=== PATIENT | male | born 1965 | race African-American/Black ===

== ENCOUNTER 2019-05-05 19:09 | Emergency (ER) | payer SELFPAY ==
[2019-05-05 19:29] VITALS: BP 136/54; PULSE 89; TEMP 98.8; BMI 41.4
[2019-05-05] MEDS ORDERED: KETOROLAC TROMETHAMINE 60 MG/2 ML VIAL IM ONE (20:10)
[2019-05-05] MEDS ORDERED: KETOROLAC TROMETHAMINE 60 MG/2 ML VIAL ONE (20:11)
--- NOTE | 2019-05-05 20:26 | PDOC ---
History of Present Illness - General Chief Complaint: Back Pain Stated Complaint: BACK PAIN Time Seen by Provider: 05/05/19 19:13 - History of Present Illness Initial Comments: 05/05/19 20:23 54-year-old male presents for lower back pain which started slowly over the last 3 hours with posterior lateral left leg radicular symptoms. No loss of bowel or bladder function saddle paresthesias or numbness or incontinence no systemic symptoms. Past History - Past Medical History COPD: No - Psycho Social/Smoking Cessation Hx Smoking History: Never smoked Have you smoked in the past 12 months: No Information on smoking cessation initiated: No Hx Alcohol Use: No Drug/Substance Use Hx: No Review of Systems - Review of Systems Musculoskeletal: Yes: Back Pain *Physical Exam - Vital Signs Last Vital Signs Temp Pulse Resp BP Pulse Ox 98.8 F 89 18 136/54 L 100 05/05/19 19:23 05/05/19 19:23 05/05/19 19:23 05/05/19 19:23 05/05/19 19:23 - Physical Exam 05/05/19 20:23 My adult exam Lumbar spine skin color temperature normal. No midline tenderness mild bilateral paralumbar musculature spasm and tenderness. 5 out of 5 strength bilateral lower extremities without gross sensorimotor deficits positive straight leg raise test on the left negative on the right neurovascular intact thighs and calves are soft and nontender. Medical Decision Making - Medical Decision Making 05/05/19 20:24 Patient pain relieved with Toradol will send in Motrin and Flexeril follow-up with spine surgery Discharge - Discharge Information Problems reviewed: Yes Clinical Impression/Diagnosis: Lumbar radiculopathy Condition: Improved Disposition: HOME - Admission No - Follow up/Referral Referrals: Jorge Luis Jefferson MD, [facility] [Staff Physician] - - Patient Discharge Instructions Patient Printed Discharge Instructions: Lumbar Radiculopathy, DI for Lumbar Radiculopathy Additional Instructions: Please take the medication as directed. Return to the emergency room for worsening symptoms and without fail follow-up with neurosurgery in 2 to 3 days for further evaluation and treatment options. Do not start the Motrin until tomorrow evening at this time. You were given an injection of a long-acting anti-inflammatory which should carry you through most of the day tomorrow. - Post Discharge Activity
[2019-05-05] MEDS ORDERED: CYCLOBENZAPRINE HCL 10 MG TABLET (FP) PO ONE (20:33)
[2019-05-05] MEDS ORDERED: CYCLOBENZAPRINE HCL 10 MG TABLET (FP) ONE (20:34)
--- NOTE | 2019-05-11 09:48 | EKG ---
Test Reason : Blood Pressure : / mmHG Vent. Rate : 086 BPM Atrial Rate : 086 BPM P-R Int : 178 ms QRS Dur : 082 ms QT Int : 372 ms P-R-T Axes : 077 072 066 degrees QTc Int : 445 ms NORMAL SINUS RHYTHM NONSPECIFIC ST ABNORMALITY ABNORMAL ECG NO PREVIOUS ECGS AVAILABLE Confirmed by MD Carlos, Salty ([id number]) on 05/11/2019 9:48:20 AM Referred By: Confirmed By:Salty Gonzalez MD
== END 2019-05-05 20:37 | disposition home or self-care (01) ==
LOC: JERFT 19:09
PROC: 3E0233Z Introduction of Anti-inflammatory into Muscle, Percutaneous Approach (ICD-10-PCS; principal; 2019-05-05)
DX: M54.16 Radiculopathy, lumbar region (principal)
CPT/HCPCS: 93005; 93010; 99282-25

== ENCOUNTER 2021-11-22 13:45 | Emergency (ER) | payer SELFPAY ==
[2021-11-22 13:53] VITALS: TEMP 98.5; BMI 35.9
[2021-11-22] MEDS ORDERED: SODIUM CHLORIDE 1,000 ML IV STA (14:02)
[2021-11-22 14:15] LABS: HEMOGLOBIN 14.4 G/dL (11.7-16.9); MCH 30.9 pg (25.7-33.7); MCHC 34.3 g/dl (32.0-35.9); MEAN CELL VOLUME 90.1 fl (80-96); MEAN PLT VOLUME 7.8 fl (7.5-11.1); PLATELET COUNT 359.5 10^3/uL (134-434); RBC 4.66 10^6/uL (4.00-5.60); RDW 13.8 % (11.9-15.9); WHITE BLOOD COUNT 10.6 10^3/uL (4.0-10.8)
[2021-11-22 14:21] LABS: INR 1.18 (0.83-1.09); PROTHROMBIN TIME (PATIENT) 13.6 SEC (9.7-13.0)
[2021-11-22 14:23] LABS: ACTIVATED PTT 29.7 SECONDS (25.2-36.5)
[2021-11-22 14:28] LABS: ALBUMIN 3.3 g/dl (3.4-5.0); BILIRUBIN,TOTAL 0.8 mg/dl (0.2-1); CALCIUM 9.4 mg/dl (8.5-10); CREATININE 1.3 mg/dl (0.55-1.3); TOT PROT 7.5 g/dl (6.4-8.2)
[2021-11-22] MEDS ORDERED: ACETAMINOPHEN 1000 MG/100 ML BAG IVPB ONE (14:35)
[2021-11-22] MEDS ORDERED: ACETAMINOPHEN INJECTION 100 ML IVPB ONE (14:38)
[2021-11-22 14:44] VITALS: PULSE 101
[2021-11-22 17:29] LABS: N-TERMINAL BNP 39.6 pg/ml (5-125)
[2021-11-22] MEDS ORDERED: morphine CARPU-JECT 4 MG/1 ML DISP.SYRIN IVPUSH ONE (19:45)
[2021-11-22] MEDS ORDERED: morphine SULFATE 4 MG/ML VIAL ONE (19:46)
[2021-11-22 20:55] VITALS: BP 123/64
[2021-11-22] MEDS ORDERED: IBUPROFEN 400 MG TABLET (FP) PO ONE ×2 (21:28→21:29)
== END 2021-11-22 21:34 | disposition left against medical advice (07) ==
LOC: FER 13:45
PROC: 3E0333Z Introduction of Anti-inflammatory into Peripheral Vein, Percutaneous Approach (ICD-10-PCS; principal; 2021-11-22)
PROC: 3E033NZ Introduction of Analgesics, Hypnotics, Sedatives into Peripheral Vein, Percutaneous Approach (ICD-10-PCS; 2021-11-22)
PROC: 3E0337Z Introduction of Electrolytic and Water Balance Substance into Peripheral Vein, Percutaneous Approach (ICD-10-PCS; 2021-11-22)
DX: R07.81 Pleurodynia (principal); R79.1 Abnormal coagulation profile
CPT/HCPCS: 36415; 71045-TC-FY; 80053; 83880; 84484; 85027; 85379; 85610; 85730; 93005; 99285-25; C9803-CS; U0003; U0005

== ENCOUNTER 2021-11-27 15:32 | Inpatient (IN) | payer SELFPAY ==
[2021-11-27 19:07] LABS: VENOUS BASE EXCESS 0.6 mmol/L (-2-2); VENOUS O2 SATURATION 82.7 % (70-80); VENOUS PCO2 38.5 mmHg (38-52); VENOUS PH 7.426 (7.310-7.410)
[2021-11-27 19:10] LABS: BASO % 0.2 % (0-2.0); EOS % 0.2 % (0-4.5); HEMATOCRIT 40.5 % (35.4-49); HEMOGLOBIN 13.3 GM/dL (11.7-16.9); LYMPH % 8.1 % (8-40); MCH 29.5 pg (25.7-33.7); MCHC 32.9 g/dl (32.0-35.9); MEAN CELL VOLUME 89.7 fl (80-96); MEAN PLT VOLUME 8.2 fl (7.5-11.1); MONO % 8.8 % (3.8-10.2); NEUT % 82.7 % (42.8-82.8); PLATELET COUNT 430 10^3/uL (134-434); RBC 4.51 M/mm3 (4.00-5.60); RDW 13.2 % (11.9-15.9); WHITE BLOOD COUNT 19.2 K/mm3 (4.0-10.0)
[2021-11-27 19:19] LABS: INR 1.47 (0.83-1.09)
[2021-11-27 19:21] LABS: ACTIVATED PTT 29.3 SECONDS (25.2-36.5)
[2021-11-27] MEDS ORDERED: morphine CARPU-JECT 4 MG/1 ML DISP.SYRIN IVPUSH ONE (19:25)
[2021-11-27 19:26] LABS: BLOOD UREA NITROGEN 19.1 mg/dL (7-18); CALCIUM 8.8 mg/dL (8.5-10.1)
[2021-11-27 19:34] LABS: ALBUMIN 2.5 g/dl (3.4-5.0)
[2021-11-27] MEDS ORDERED: ONDANSETRON 4 MG/2 ML VIAL IVPUSH ONE (19:34)
[2021-11-27] MEDS ORDERED: morphine SULFATE 4 MG/ML VIAL ONE (19:34)
[2021-11-27] MEDS ORDERED: ONDANSETRON 4 MG/2 ML VIAL ONE (19:35)
[2021-11-28] MEDS ORDERED: AZITHROMYCIN 250 MG TABLET PO ONE (01:09)
[2021-11-28] MEDS ORDERED: CEFTRIAXONE 1 GM/50 ML BAG ONE ×2 (01:37→09:30)
[2021-11-28] MEDS ORDERED: AZITHROMYCIN 250 MG TABLET ONE (01:37)
[2021-11-28] MEDS: CEFTRIAXONE 1 GM in DEXTROSE 5%-WATER - 50 ML IVPB SCH ×2 (01:48→10:26)
[2021-11-28 02:02] LABS: EPI CELLS 7 /uL (0-25.1); HYALINE CASTS 2 /uL (0-3.1); PH,URINE 5.5 (5.0-8.0); URINE APPEARANCE CLEAR; URINE BACTERIA 5 /uL (0-1359); URINE BILIRUBIN NEGATIVE (NEGATIVE); URINE COLOR YELLOW; URINE GLUCOSE (UA) NEGATIVE (NEGATIVE); URINE KETONE 1+ (NEGATIVE); URINE LEUK ESTERASE NEGATIVE (NEGATIVE); URINE NITRITE NEGATIVE (NEGATIVE); URINE PROTEIN 1+ (NEGATIVE); URINE RBC 62 /uL (0-23.9); URINE UROBILINOGEN 0.2 mg/dL (0.2-1.0); URINE WBC 18 /uL (0-25.8)
[2021-11-28 07:42] LABS: BASO % 0.4 % (0-2.0); EOS % 0.4 % (0-4.5); HEMATOCRIT 39.4 % (35.4-49); LYMPH % 9.9 % (8-40); MCH 29.9 pg (25.7-33.7); MCHC 33.1 g/dl (32.0-35.9); MEAN CELL VOLUME 90.3 fl (80-96); MEAN PLT VOLUME 8.6 fl (7.5-11.1); MONO % 11.2 % (3.8-10.2); NEUT % 78.1 % (42.8-82.8); PLATELET COUNT 391 10^3/uL (134-434); RBC 4.36 M/mm3 (4.00-5.60); WHITE BLOOD COUNT 18.9 K/mm3 (4.0-10.0)
[2021-11-28 08:10] LABS: CALCIUM 8.6 mg/dL (8.5-10.1)
[2021-11-28 08:11] LABS: ALBUMIN 2.3 g/dl (3.4-5.0); BLOOD UREA NITROGEN 18.5 mg/dL (7-18); MAGNESIUM 2.3 mg/dL (1.8-2.4)
[2021-11-28 08:14] LABS: PHOSPHOROUS 4.2 mg/dL (2.5-4.9)
[2021-11-28 08:16] LABS: BILIRUBIN,TOTAL 1.3 mg/dL (0.2-1); TOT PROT 7.5 g/dl (6.4-8.2)
[2021-11-28 08:26] LABS: INR 1.42 (0.83-1.09); PROTHROMBIN TIME (PATIENT) 16.4 SEC (9.7-13.0)
[2021-11-28] MEDS ORDERED: ENOXAPARIN NA (PORCINE) 40 MG/0.4 ML DISP.SYRIN SQ ONE (09:30)
[2021-11-28] MEDS: ENOXAPARIN NA (PORCINE) 40 MG/0.4 ML DISP.SYRIN SQ SCH (10:26)
[2021-11-28] MEDS: SODIUM CHLORIDE 1,000 ML IV SCH (12:00)
[2021-11-28] MEDS ORDERED: ACETAMINOPHEN 500 MG TABLET (FP) PO PRN (17:34)
[2021-11-28] MEDS ORDERED: PIPERACILLIN/TAZOBACTAM 3.375 GM VIAL IVPB ONE (17:51)
[2021-11-28] MEDS ORDERED: DEXTROSE 5%-WATER - 50 ML IVPB ONE (17:51)
[2021-11-28] MEDS: PIPERACILLIN/TAZOB 3.375 GM 3.375 GM in DEXTROSE 5%-WATER - 50 ML IVPB SCH (18:46)
[2021-11-28 20:05] VITALS: BMI 40.6
[2021-11-29] MEDS ORDERED: DEXTROSE 5%-WATER - 50 ML IVPB ONE ×3 (02:13→18:10)
[2021-11-29] MEDS ORDERED: PIPERACILLIN/TAZOBACTAM 3.375 GM VIAL IVPB ONE ×3 (02:13→18:10)
[2021-11-29] MEDS: PIPERACILLIN/TAZOB 3.375 GM 3.375 GM in DEXTROSE 5%-WATER - 50 ML IVPB SCH ×3 (02:55→18:25)
[2021-11-29 07:30] LABS: BASO % 0.5 % (0-2.0); EOS % 0.5 % (0-4.5); HEMATOCRIT 37.6 % (35.4-49); HEMOGLOBIN 12.4 GM/dL (11.7-16.9); LYMPH % 10.3 % (8-40); MCH 29.7 pg (25.7-33.7); MEAN CELL VOLUME 89.8 fl (80-96); MEAN PLT VOLUME 8.4 fl (7.5-11.1); MONO % 10.6 % (3.8-10.2); NEUT % 78.1 % (42.8-82.8); PLATELET COUNT 359 10^3/uL (134-434); RBC 4.18 M/mm3 (4.00-5.60); RDW 13.3 % (11.9-15.9); WHITE BLOOD COUNT 16.7 K/mm3 (4.0-10.0)
[2021-11-29 07:39] LABS: INR 1.4 (0.83-1.09); PROTHROMBIN TIME (PATIENT) 16.1 SEC (9.7-13.0)
[2021-11-29 07:55] LABS: CALCIUM 8.7 mg/dL (8.5-10.1)
[2021-11-29 07:56] LABS: ALBUMIN 2.1 g/dl (3.4-5.0); BLOOD UREA NITROGEN 18.4 mg/dL (7-18); MAGNESIUM 2.3 mg/dL (1.8-2.4)
[2021-11-29 08:03] LABS: BILIRUBIN,TOTAL 0.8 mg/dL (0.2-1)
[2021-11-29] MEDS ORDERED: AZITHROMYCIN 250 MG TABLET PO SCH (10:00)
[2021-11-29 15:14] LABS: BF WBC & OTHER NUCLEATED CELLS 692 /mm3
[2021-11-29 15:51] LABS: BODY FLUID MACROPHAGES 64 %; BODY FLUID MESOTHELIAL 3 %; BODYL FLD EOSINOPHIL 4 %
[2021-11-29] MEDS: SODIUM CHLORIDE 1,000 ML IV SCH (18:25)
[2021-11-30] MEDS ORDERED: PIPERACILLIN/TAZOBACTAM 3.375 GM VIAL IVPB ONE ×3 (00:32→16:02)
[2021-11-30] MEDS ORDERED: DEXTROSE 5%-WATER - 50 ML IVPB ONE ×3 (00:33→16:03)
[2021-11-30] MEDS: PIPERACILLIN/TAZOB 3.375 GM 3.375 GM in DEXTROSE 5%-WATER - 50 ML IVPB SCH ×3 (01:25→17:23)
[2021-11-30] MEDS: SODIUM CHLORIDE 1,000 ML IV SCH ×2 (01:26→11:50)
[2021-11-30 08:42] LABS: BASO % 0.5 % (0-2.0); EOS % 0.9 % (0-4.5); HEMATOCRIT 38.7 % (35.4-49); HEMOGLOBIN 12.7 GM/dL (11.7-16.9); LYMPH % 13.4 % (8-40); MCH 30.2 pg (25.7-33.7); MCHC 32.8 g/dl (32.0-35.9); MEAN CELL VOLUME 91.9 fl (80-96); MEAN PLT VOLUME 8.4 fl (7.5-11.1); MONO % 10.7 % (3.8-10.2); NEUT % 74.5 % (42.8-82.8); PLATELET COUNT 450 10^3/uL (134-434); RBC 4.21 M/mm3 (4.00-5.60); RDW 13.7 % (11.9-15.9); WHITE BLOOD COUNT 15.3 K/mm3 (4.0-10.0)
[2021-11-30 09:01] LABS: BLOOD UREA NITROGEN 17.7 mg/dL (7-18); CALCIUM 9.1 mg/dL (8.5-10.1); MAGNESIUM 2.4 mg/dL (1.8-2.4)
[2021-11-30 09:02] LABS: ALBUMIN 2.3 g/dl (3.4-5.0)
[2021-11-30 09:04] LABS: CREATININE 1.1 mg/dL (0.55-1.3)
[2021-11-30 09:05] LABS: BILIRUBIN,TOTAL 0.6 mg/dL (0.2-1); TOT PROT 7.8 g/dl (6.4-8.2)
[2021-11-30] MEDS: ENOXAPARIN NA (PORCINE) 40 MG/0.4 ML DISP.SYRIN SQ SCH (10:40)
[2021-12-01] MEDS ORDERED: PIPERACILLIN/TAZOBACTAM 3.375 GM VIAL IVPB ONE ×3 (00:23→17:21)
[2021-12-01] MEDS ORDERED: DEXTROSE 5%-WATER - 50 ML IVPB ONE ×3 (00:24→17:21)
[2021-12-01] MEDS: PIPERACILLIN/TAZOB 3.375 GM 3.375 GM in DEXTROSE 5%-WATER - 50 ML IVPB SCH ×3 (01:19→17:54)
[2021-12-01 07:33] LABS: BASO % 0.5 % (0-2.0); HEMOGLOBIN 11.7 GM/dL (11.7-16.9); LYMPH % 14.1 % (8-40); MCH 30.2 pg (25.7-33.7); MCHC 33.5 g/dl (32.0-35.9); MEAN CELL VOLUME 90.2 fl (80-96); MEAN PLT VOLUME 7.9 fl (7.5-11.1); MONO % 9.7 % (3.8-10.2); NEUT % 74.7 % (42.8-82.8); PLATELET COUNT 408 10^3/uL (134-434); RBC 3.89 M/mm3 (4.00-5.60); RDW 13.2 % (11.9-15.9); WHITE BLOOD COUNT 15.5 K/mm3 (4.0-10.0)
[2021-12-01 07:54] LABS: BLOOD UREA NITROGEN 14.6 mg/dL (7-18); CALCIUM 8.4 mg/dL (8.5-10.1)
[2021-12-01 07:59] LABS: BILIRUBIN,TOTAL 0.6 mg/dL (0.2-1); TOT PROT 6.6 g/dl (6.4-8.2)
[2021-12-01] MEDS: ENOXAPARIN NA (PORCINE) 40 MG/0.4 ML DISP.SYRIN SQ SCH (10:44)
[2021-12-01] MEDS ORDERED: ALTEPLASE 50MG 10 MG in SODIUM CHLORIDE 40 ML IV SCH (11:10)
[2021-12-01] MEDS ORDERED: ALTEPLASE 50 MG/50 ML VIAL IX SCH (12:00)
[2021-12-01] MEDS: ALTEPLASE (CATHFLO) 2 MG/2 ML VIAL IX SCH (16:00)
[2021-12-01] MEDS: SODIUM CHLORIDE 1,000 ML IV SCH (17:52)
[2021-12-01] MEDS ORDERED: ACETAMINOPHEN 1000 MG/100 ML BAG IVPB ONE (21:28)
[2021-12-02] MEDS ORDERED: PIPERACILLIN/TAZOBACTAM 3.375 GM VIAL IVPB ONE ×3 (01:43→17:17)
[2021-12-02] MEDS ORDERED: DEXTROSE 5%-WATER - 50 ML IVPB ONE ×3 (01:43→17:17)
[2021-12-02] MEDS: PIPERACILLIN/TAZOB 3.375 GM 3.375 GM in DEXTROSE 5%-WATER - 50 ML IVPB SCH ×3 (02:45→17:51)
[2021-12-02] MEDS: ALTEPLASE (CATHFLO) 2 MG/2 ML VIAL IX SCH ×3 (08:35→21:12)
[2021-12-02] MEDS ORDERED: ACETAMINOPHEN 1000 MG/100 ML BAG IVPB ONE (09:00)
[2021-12-02] MEDS: ENOXAPARIN NA (PORCINE) 40 MG/0.4 ML DISP.SYRIN SQ SCH (10:04)
[2021-12-02] MEDS ORDERED: ACETAMINOPHEN 1000 MG/100 ML BAG IVPB PRN (14:00)
[2021-12-02] MEDS: SODIUM CHLORIDE 1,000 ML IV SCH (15:03)
[2021-12-02] MEDS ORDERED: LIDOCAINE HCL 1%, 10 MG/ML (20ML VIAL) SQ ONE (18:32)
[2021-12-03] MEDS ORDERED: PIPERACILLIN/TAZOBACTAM 3.375 GM VIAL IVPB ONE ×4 (01:31→21:57)
[2021-12-03] MEDS ORDERED: DEXTROSE 5%-WATER - 50 ML IVPB ONE ×3 (01:31→14:07)
[2021-12-03] MEDS: PIPERACILLIN/TAZOB 3.375 GM 3.375 GM in DEXTROSE 5%-WATER - 50 ML IVPB SCH ×5 (05:47→22:18)
[2021-12-03] MEDS: ALTEPLASE (CATHFLO) 2 MG/2 ML VIAL IX SCH (06:50)
[2021-12-03] MEDS: ENOXAPARIN NA (PORCINE) 40 MG/0.4 ML DISP.SYRIN SQ SCH (10:11)
[2021-12-03] MEDS: SODIUM CHLORIDE 1,000 ML IV SCH (14:13)
[2021-12-04 01:54] VITALS: BP 134/75; PULSE 92; TEMP 98.7
[2021-12-04] MEDS: ALTEPLASE (CATHFLO) 2 MG/2 ML VIAL IX SCH ×2 (03:15→10:26)
[2021-12-04] MEDS ORDERED: DEXTROSE 5%-WATER - 50 ML IVPB ONE (05:16)
[2021-12-04] MEDS ORDERED: PIPERACILLIN/TAZOBACTAM 3.375 GM VIAL IVPB ONE (05:16)
[2021-12-04] MEDS: PIPERACILLIN/TAZOB 3.375 GM 3.375 GM in DEXTROSE 5%-WATER - 50 ML IVPB SCH (06:15)
[2021-12-04] MEDS: ENOXAPARIN NA (PORCINE) 40 MG/0.4 ML DISP.SYRIN SQ SCH (10:26)
== END 2021-12-04 15:03 | disposition left against medical advice (07) | DRG 720 ==
LOC: JER 15:32 → JERBED 19:51 → J4W 11-28 15:20
PROVIDERS: ADMIT Internal Medicine; ATTEND Nurse Practitioner Acute Care
PROC: 0W9B30Z Drainage of Left Pleural Cavity with Drainage Device, Percutaneous Approach (ICD-10-PCS; 2021-11-29)
PROC: 3E0L3GC Introduction of Other Therapeutic Substance into Pleural Cavity, Percutaneous Approach (ICD-10-PCS; principal; 2021-12-01)
PROC: 3E0L3GC Introduction of Other Therapeutic Substance into Pleural Cavity, Percutaneous Approach (ICD-10-PCS; 2021-12-02)
PROC: 3E0L3GC Introduction of Other Therapeutic Substance into Pleural Cavity, Percutaneous Approach (ICD-10-PCS; 2021-12-03)
DX: A41.89 Other specified sepsis (principal); J90 Pleural effusion, not elsewhere classified; D72.829 Elevated white blood cell count, unspecified; R94.5 Abnormal results of liver function studies; J18.9 Pneumonia, unspecified organism; R07.89 Other chest pain; R00.0 Tachycardia, unspecified; Z85.72 Personal history of non-Hodgkin lymphomas; R91.1 Solitary pulmonary nodule
CPT/HCPCS: 32557; 36415; 71045-TC-FY; 71046-TC-FY; 71275-TC; 74176-TC; 80053; 81003; 82042; 82150; 82465; 82803; 82945; 82962; 83036; 83615; 83735; 83986; 84100; 84157; 84478; 84484; 85025; 85610; 85730; 86704; 86705; 86803; 86850; 86900; 86901; 87040; 87070; 87075; 87086; 87102; 87116; 87205; 87206; 87210; 87340; 87517; 87899; 88108; 88305-TC; 93005; 93010; 93306-TC; 99285-25; C1729; C1769; C9803-CS; J2997; Q9967; U0003; U0005